=== PATIENT | male | born 1935 | race Caucasian/White ===

== ENCOUNTER 2017-10-13 12:27 | Emergency (ER) | payer OTHER ==
[~2017-10-13] VITALS: Ht 182.9 cm; Wt 79.5 kg
[2017-10-13 12:29] VITALS: BP 133/69; PULSE 70; RESP 18; TEMP 97.9; O2SAT 99
--- NOTE | 2017-10-13 13:37 | RADRPT ---
EXAM DATE/TIME: 10/13/2017 13:07 [place] COMPARISON: No previous studies available for comparison. INDICATIONS : Head pain due to fall last night. RADIATION DOSE: 56.35 CTDIvol (mGy) MEDICAL HISTORY : None SURGICAL HISTORY : None. ENCOUNTER: Initial ACUITY: 2 days PAIN SCALE: 1/10 LOCATION: Left cranial TECHNIQUE: Multiple contiguous axial images were obtained of the head. Using automated exposure control and adj ustment of the mA and/or kV according to patient size, radiation dose was kept as low as reasonably a chievable to obtain optimal diagnostic quality images. DICOM format image data is available electro nically for review and comparison. FINDINGS: CEREBRUM: The ventricles are normal for age. No evidence of midline shift, mass lesion, hemorrhage or acute in farction. No extra-axial fluid collections are seen. Moderate vascular calcifications are noted. POSTERIOR FOSSA: The cerebellum and brainstem are intact. The 4th ventricle is midline. The cerebellopontine angle i s unremarkable. EXTRACRANIAL: The visualized portion of the orbits is intact. SKULL: The calvaria is intact. No evidence of skull fracture. CONCLUSION: Negative for acute process. Costa Hutchins MD FACR on October 13, 2017 at 13:34 Board Certified Radiologist. This report was verified electronically.
--- NOTE | 2017-10-13 15:20 | PD ---
HPI Chief Complaint: Fall Time Seen by Provider: 15:04 Travel History International Travel<30 days: No Contact w/Intl Traveler<30days: No Traveled to known affect area: No History of Present Illness HPI 81-year-old male patient of the [facility], seen for frequent falls, was hit to the head. Patient had no loss of consciousness. There is no open wound. There is no significant contusion. Patient was sent for evaluation by the [facility] as he is on a course. Patient is a current smoker. Patient states he was using his walker and his "legs went out". He currently has no other complaints. No complaints of headache, dizziness, nausea, or vomiting. He has no pain in any other extremity. CT was ordered in triage. Patient is allergic to statins. PFSH Past Medical History Coronary Artery Disease: Yes Past Surgical History Appendectomy: Yes Cardiac Surgery: Yes Coronary Artery Bypass Graft: Yes (CABG x3 , AORTIC VALVE REPLACEMENT, CARDIAC , PACEMAKER (BIOTRONIC)) Genitourinary Surgery: Yes (ROTAROTER TO PROSTATE ) Tonsillectomy: Yes Social History Alcohol Use: Yes Tobacco Use: Yes Substance Use: No Allergies-Medications (Allergen,Severity, Reaction): Coded Allergies: Autrxry-Bcf-Xzg Reductase Inhibitor (Verified Allergy, Unknown, 10/13/17) Reported Meds & Prescriptions Reported Meds & Active Scripts Active Active Prescriptions or Reported Medications Unobtainable Review of Systems Except as stated in HPI: all other systems reviewed are Neg General / Constitutional: No: Fever Eyes: No: Visual changes HENT: No: Headaches Cardiovascular: No: Chest Pain or Discomfort Respiratory: No: Shortness of Breath Gastrointestinal: No: Abdominal Pain Genitourinary: No: Dysuria Musculoskeletal: No: Pain Skin: No Rash Neurologic: No: Weakness Psychiatric: No: Depression Endocrine: No: Polydipsia Hematologic/Lymphatic: No: Easy Bruising Physical Exam Narrative GENERAL: Patient appears in no acute distress. SKIN: Warm and dry. Normal color. Normal turgor. This very small superficial abrasion to the anterior middle forehead. HEAD: Atraumatic. Normocephalic. Nontender with palpation. EYES: Pupils equal and round. No scleral icterus. No injection or drainage. ENT: No nasal bleeding or discharge. Mucous membranes pink and moist. No dental injury. Pharynx is clear. Airway is patent. NECK: Trachea midline. No JVD. No bony tenderness or step-off. Range of motion is full and nontender. CARDIOVASCULAR: Regular rate and rhythm. RESPIRATORY: No accessory muscle use. Clear to auscultation. Breath sounds equal bilaterally. GASTROINTESTINAL: Abdomen soft, non-tender, nondistended. Hepatic and splenic margins not palpable. MUSCULOSKELETAL: Extremities without clubbing, cyanosis, or edema. No obvious deformities. NEUROLOGICAL: Awake and alert. No obvious cranial nerve deficits. Motor grossly within normal limits. Five out of 5 muscle strength in the arms and legs. Normal speech. PSYCHIATRIC: Appropriate mood and affect; insight and judgment normal. Data Data Last Documented VS Vital Signs Date Time Temp Pulse Resp B/P (MAP) Pulse Ox O2 Delivery O2 Flow Rate FiO2 10/13/17 12:29 97.9 70 18 133/69 (90) 99 Room Air Orders Orders Ct Brain W/O Iv Contrast(Rout) (10/13/17 ) [facility] Medical Decision Making Medical Screen Exam Complete: Yes Emergency Medical Condition: Yes Medical Record Reviewed: Yes Differential Diagnosis Frequent falls. Fall with loss of consciousness. Patient on anticoagulation. Narrative Course CT the head is ordered in triage. CT shows no acute process. Patient is stable for discharge. Patient is to use walker or wheelchair at all times. Patient follow with the [facility] as discussed. Diagnosis Primary Impression: Fall Qualified Codes: W19.XXXA - Unspecified fall, initial encounter Referrals: [facility] [place] Patient Instructions: Fall Prevention for Older Adults (DC), General Instructions Additional Instructions: CT shows no acute process. Patient is stable for discharge. Patient is to use walker or wheelchair at all times. Patient follow with the [facility] as discussed. Med/Other Pt SpecificInfo: No Change to Meds Scripts Unable to Obtain Active Prescriptions or Reported Meds Disposition: DISCHARGE HOME Condition: Stable Brian Sky Oct 13, 2017 15:20
== END 2017-10-13 15:47 | disposition home or self-care (01) ==
LOC: NEPB 12:27
DX: Z04.3 Encounter for examination and observation following other accident (principal); Z72.0 Tobacco use; W19.XXXA Unspecified fall, initial encounter
CPT/HCPCS: 70450; 99284